=== PATIENT | female | born 1965 | race Caucasian/White ===

== ENCOUNTER 2020-09-06 16:52 | Inpatient (IN) | payer OTHER ==
[~2020-09-06] VITALS: Ht 160 cm; Wt 81.8 kg
--- NOTE | 2020-09-06 17:19 | NUR ---
ASSUMED CARE OF PATIENT. PATIENT MAGDALENA DALTON AFTER BEING FOUND HER CAR UNRESPONSIVE. PT WAS ALSO FOUND TO BE HYPOTENSIVE AND PULSE OX IN THE 70%. EMS STARTED A IO IN THE LEFT LEG AND GAVE FLUIDS WITH NARCAN. PT IS NOW ALERT BUT DRWOSY. PT REPORTS SHE DOES NOT KNOW WHAT HAPPENED, SHE ONLY HAD ONE BEER TODAY. PT WAS FOUND WITH MEDICATIONS IN HER CAR. VS STABLE. LOOP SEWER ON. PT HAS BEEN SEEN BY DR CLIFTON. EKG DONE. CALL LIGHT IN PLACE. WILL CONTINUE TO MONITOR.
[2020-09-06 17:30] LABS: BASOPHILS % (AUTO) 1 % (0-1); EOSINOPHILS % (AUTO) 2 % (1-7); LYMPHOCYTES % (AUTO) 28 % (22-44); MEAN CORPUSCULAR HEMOGLOBIN 30.3 pg (27.0-34.8); MEAN CORPUSCULAR HGB CONC 33.4 g/dL (32.4-35.8); MEAN PLATELET VOLUME 9.3 fL (7.4-10.4); MONOCYTES % (AUTO) 5 % (2-9); NEUTROPHILS % (AUTO) 64 % (42-75); PLATELET COUNT 160 x10^3/uL (130-400); RED BLOOD COUNT 4.55 x10^6/uL (3.82-5.3); RED CELL DISTRIBUTION WIDTH 13.4 % (9.6-15.2)
[2020-09-06 17:42] LABS: ALANINE AMINOTRANSFERASE 25 U/L (12-78); ALBUMIN 3.2 g/dL (3.4-5.0); ANION GAP 10 mmol/L (5-15); CALCIUM 8.3 mg/dL (8.5-10.1); CHLORIDE 111 mmol/L (98-107); CREATININE 1.15 mg/dL (0.55-1.02)
[2020-09-06 17:43] LABS: SALICYLATE LEVEL < 1.7 mg/dL (2.8-20.0)
[2020-09-06 17:47] LABS: ALKALINE PHOSPHATASE 67 U/L (45-117); BILIRUBIN,TOTAL 0.3 mg/dL (0.2-1.0)
[2020-09-06] MEDS ORDERED: ONDANSETRON 2MG/ML, 2ML ONE (17:48)
--- NOTE | 2020-09-06 17:53 | NUR ---
DAUGHTER AT BEDSIDE.
--- NOTE | 2020-09-06 17:53 | NUR ---
DR CLIFTON HAS UDATED PATIENT AND FAMILY
[2020-09-06] MEDS ORDERED: ONDANSETRON 2MG/ML, 2ML IVPush ONE (18:00)
[2020-09-06 19:09] LABS: AMPHETAMINE SCREEN, URINE Positive (Negative); BARBITURATE SCREEN, URINE Negative (Negative); BENZODIAZEPINE SCREEN, URINE Negative (Negative); CANNABINOID SCREEN, URINE Negative (Negative); COCAINE SCREEN, URINE Negative (Negative); METHADONE SCREEN, URINE Negative (Negative); OPIATE SCREEN, URINE Negative (Negative)
--- NOTE | 2020-09-06 19:10 | NUR ---
REPORT GIVEN TO MANUELA CALLE
[2020-09-06 19:19] LABS: MICROSCOPIC NOT IND
--- NOTE | 2020-09-06 19:36 | NUR ---
RECEIVED REPORT FROM MANUELA GUSMAN. PT RESTING ON AISHA. NADN. BEAL.
--- NOTE | 2020-09-06 20:20 | NUR ---
PT CHART REVIEWED AND PLACED FOR RECHECK.
--- NOTE | 2020-09-06 20:36 | NUR ---
PT RESTING IN ROOM. AOX4. PT SATING 98% 2L NC. PLACED ON RA SATING 94%-95%
--- NOTE | 2020-09-06 20:44 | NUR ---
PT NOTED TO DESAT TO 83% RA. PLACED AGAIN ON 2L NC NOW SATING 99%
--- NOTE | 2020-09-06 21:06 | NUR ---
REPORT TGIVEN TO PARVIN JANSEN RN.
[2020-09-06] MEDS ORDERED: ONDANSETRON ODT 4 MG PO PRN (22:30)
[2020-09-06] MEDS ORDERED: BISACODYL 10 MG SUPP PR PRN (22:30)
[2020-09-06] MEDS ORDERED: metFORMIN 500 MG TABLET PO SCH (22:30)
[2020-09-06] MEDS ORDERED: POLYETHYLENE GLYCOL 17 GM PACKET PO PRN (22:30)
--- NOTE | 2020-09-06 22:35 | NUR ---
report to flip michele
[2020-09-06 23:06] VITALS: BP 126/82
[2020-09-07] MEDS: SODIUM CHLORIDE 0.9% 1,000 ML IV SCH ×2 (00:02→17:40)
[2020-09-07 01:14] VITALS: BP 108/71
[2020-09-07 07:48] VITALS: BP 102/66
[2020-09-07] MEDS: SENNA/DOCUSATE TABLET PO SCH (09:30)
[2020-09-07] MEDS: HEPARIN 5,000 UNITS/ML, 1ML SQ SCH ×2 (09:31→17:40)
[2020-09-07] MEDS: ACETAMINOPHEN 325 MG TABLET PO PRN (09:55)
[2020-09-07 10:40] LABS: ANION GAP 6 mmol/L (5-15); CALCIUM 8.4 mg/dL (8.5-10.1); CHLORIDE 108 mmol/L (98-107); CREATININE 0.86 mg/dL (0.55-1.02)
[2020-09-07] MEDS: INSULIN LISPRO 100 UNITS/ML, PEN SQ-INSULIN SCH ×3 (11:00→19:54)
[2020-09-07 12:23] VITALS: BP 90/56
[2020-09-07 19:57] VITALS: BP 99/68
[2020-09-08] MEDS: HEPARIN 5,000 UNITS/ML, 1ML SQ SCH ×2 (01:11→09:00)
[2020-09-08 01:13] VITALS: BP_SYST 112; BP_SYST 116; BP_DIAS 75; BP_DIAS 76; BP_DIAS 77
[2020-09-08] MEDS: SODIUM CHLORIDE 0.9% 1,000 ML IV SCH (01:15)
[2020-09-08 05:40] LABS: ANION GAP 4 mmol/L (5-15); CALCIUM 7.9 mg/dL (8.5-10.1); CHLORIDE 109 mmol/L (98-107); CREATININE 0.75 mg/dL (0.55-1.02)
[2020-09-08] MEDS: INSULIN LISPRO 100 UNITS/ML, PEN SQ-INSULIN SCH ×2 (07:00→11:00)
[2020-09-08 07:09] VITALS: BP 113/77
[2020-09-08] MEDS: SENNA/DOCUSATE TABLET PO SCH ×2 (09:00→10:25)
[2020-09-08] MEDS ORDERED: ACET325T26 PO (10:00)
[2020-09-08] MEDS ORDERED: SENN-99 PO (10:02)
[2020-09-08 13:26] VITALS: BP 120/83
[2020-09-08] MEDS: ACETAMINOPHEN 325 MG TABLET PO PRN (13:32)
[2020-09-08] MEDS ORDERED: SODIUM CHLORIDE 0.9% 1,000 ML IV SCH (22:30)
== END 2020-09-08 16:30 | disposition home or self-care (01) | DRG 639 ==
LOC: MERGE 16:52 → EDBD 16:52 → ED 17:22 → EDIP 22:08 → 4EST 22:49
PROVIDERS: ADMIT Family Medicine; ATTEND Internal Medicine
PROC: 0T9B70Z Drainage of Bladder with Drainage Device, Via Natural or Artificial Opening (ICD-10-PCS; principal; 2020-09-06)
DX: E11.65 Type 2 diabetes mellitus with hyperglycemia (principal); E66.9 Obesity, unspecified; F10.10 Alcohol abuse, uncomplicated; F12.90 Cannabis use, unspecified, uncomplicated; F15.10 Other stimulant abuse, uncomplicated; R55 Syncope and collapse; R09.02 Hypoxemia; Z80.1 Family history of malignant neoplasm of trachea, bronchus and lung; Z87.891 Personal history of nicotine dependence; Z68.31 Body mass index [BMI] 31.0-31.9, adult
CPT/HCPCS: 36415; 36600; 70450; 71045; 80048; 80053; 80299; 80307; 80320; 80329; 81003; 82140; 82803; 82962; 83036; 84703; 85025; 93005; 93306; 93880; 96374; 99291; G0378; J1644; J2405; G0480; J7030

== ENCOUNTER 2020-09-10 11:37 | Observation (INO) | payer MEDICAID, OTHER ==
[~2020-09-10] VITALS: Ht 165.1 cm; Wt 83.0 kg
[~2020-09-10 11:37] MED LIST: ACET325T26 PO; SENN-99 PO
--- NOTE | 2020-09-10 11:51 | NUR ---
DONATIONS ATTENDANT: EKG DONE IN TRIAGE.
[2020-09-10] MEDS ORDERED: ASPIRIN 81 MG TABLET CHEW PO ONE (12:00)
[2020-09-10 12:27] LABS: BASOPHILS % (AUTO) 0 % (0-1); EOSINOPHILS % (AUTO) 1 % (1-7); LYMPHOCYTES % (AUTO) 17 % (22-44); MEAN CORPUSCULAR HEMOGLOBIN 30.2 pg (27.0-34.8); MEAN CORPUSCULAR HGB CONC 33.9 g/dL (32.4-35.8); MEAN PLATELET VOLUME 9.5 fL (7.4-10.4); MONOCYTES % (AUTO) 10 % (2-9); NEUTROPHILS % (AUTO) 72 % (42-75); PLATELET COUNT 186 x10^3/uL (130-400); RED BLOOD COUNT 4.74 x10^6/uL (3.82-5.3); RED CELL DISTRIBUTION WIDTH 13.4 % (9.6-15.2)
[2020-09-10 12:44] LABS: ALBUMIN 3.2 g/dL (3.4-5.0); ANION GAP 5 mmol/L (5-15); CALCIUM 8.7 mg/dL (8.5-10.1); CHLORIDE 110 mmol/L (98-107); CREATININE 0.86 mg/dL (0.55-1.02)
[2020-09-10 12:48] LABS: TROPONIN I < 0.015 ng/mL (0.000-0.045)
--- NOTE | 2020-09-10 13:39 | NUR ---
[employer] DUTY MANAGER: PT TO ROOM FROM LOBBY
[2020-09-10] MEDS ORDERED: ASPIRIN 81 MG TABLET CHEW ONE (13:51)
--- NOTE | 2020-09-10 13:53 | NUR ---
First contact with pt. Pt c/o SOB and intermittent dull L sided cp 09/29. 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 Pt currently speaking in full sentences, resp even and unlabored. Pt placed in gown, positioned for comfort in bed. Continuous heart, oxygen and BP monitors applied, all safety measures observed. [facility] resident at bedside to evaluate pt.
--- NOTE | 2020-09-10 15:09 | NUR ---
BREAK RN: PT VISITING WITH DAUGHTER AT BEDSIDE. VS STABLE. NO ACUTE DISTRESS NOTED. CALL LIGHT IN PLACE. WILL CONTINUE TO MONITOR WHILE PRIMARY RN IS ON BREAK.
[2020-09-10] MEDS ORDERED: OMNIPAQUE 350 MG/ML, 75ML BOTTLE ONE (15:10)
--- NOTE | 2020-09-10 15:38 | NUR ---
BREAK RN: REPORT GIVEN TO MANUELA CASON
--- NOTE | 2020-09-10 16:18 | NUR ---
Pt ambulatory to bathroom and back to bed without difficulty. Pt requesting pain medication for 6/10 CP.
[2020-09-10] MEDS ORDERED: ENALAPRILAT 1.25 MG/ML, 2ML IVPush PRN (17:00)
[2020-09-10] MEDS ORDERED: HYDROmorphone 1 MG/ML, 1ML INJ IV ONE (17:00)
[2020-09-10] MEDS ORDERED: ONDANSETRON 2MG/ML, 2ML IVPush PRN (17:00)
[2020-09-10] MEDS ORDERED: ACETAMINOPHEN 325 MG TABLET PO PRN (17:00)
[2020-09-10] MEDS ORDERED: morphine SULFATE 10 MG/ML, 1ML IVPush PRN (17:00)
[2020-09-10 17:07] LABS: INTERNATIONAL NORMALIZED RATIO 0.97 (0.93-1.1); PROTHROMBIN TIME 10.4 Seconds (9.6-11.5)
[2020-09-10 18:08] VITALS: BP 126/80
[2020-09-10] MEDS ORDERED: LIDODERM 5% PATCH TD PRN (18:30)
[2020-09-10] MEDS: KETOROLAC 30 MG/1 ML IV PRN (18:50)
[2020-09-10 19:17] VITALS: BP 124/83
[2020-09-10] MEDS: APIXABAN 5 MG TABLET PO SCH (20:19)
[2020-09-10] MEDS ORDERED: MELATONIN 5 MG TABLET PO PRN (21:00)
[2020-09-11 02:04] VITALS: BP 116/70
[2020-09-11 04:57] LABS: BASOPHILS % (AUTO) 1 % (0-1); EOSINOPHILS % (AUTO) 2 % (1-7); LYMPHOCYTES % (AUTO) 23 % (22-44); MEAN CORPUSCULAR HEMOGLOBIN 30.5 pg (27.0-34.8); MEAN CORPUSCULAR HGB CONC 33.5 g/dL (32.4-35.8); MEAN PLATELET VOLUME 9.6 fL (7.4-10.4); MONOCYTES % (AUTO) 7 % (2-9); NEUTROPHILS % (AUTO) 68 % (42-75); PLATELET COUNT 180 x10^3/uL (130-400); RED CELL DISTRIBUTION WIDTH 13.3 % (9.6-15.2)
[2020-09-11 05:06] LABS: ALANINE AMINOTRANSFERASE 39 U/L (12-78); ANION GAP 10 mmol/L (5-15); CALCIUM 8.8 mg/dL (8.5-10.1); CHLORIDE 111 mmol/L (98-107); CREATININE 1.04 mg/dL (0.55-1.02)
[2020-09-11 05:08] LABS: ALKALINE PHOSPHATASE 71 U/L (45-117); BILIRUBIN,TOTAL 0.5 mg/dL (0.2-1.0); TOTAL PROTEIN 6.5 g/dL (6.4-8.2)
[2020-09-11 06:32] VITALS: BP 103/69
[2020-09-11] MEDS: KETOROLAC 30 MG/1 ML IV PRN (09:20)
[2020-09-11] MEDS: APIXABAN 5 MG TABLET PO SCH ×2 (09:20→18:51)
[2020-09-11] MEDS ORDERED: ACET325T26 PO ×2 (11:19→12:16)
[2020-09-11] MEDS ORDERED: APIX5TAB PO (11:19)
[2020-09-11] MEDS ORDERED: LIDO700A20 TD (12:14)
[2020-09-11] MEDS ORDERED: HYDR-3241 PO ×2 (12:14)
[2020-09-11 13:30] VITALS: BP 126/82
[2020-09-12] MEDS ORDERED: HYDR-3241 PO (07:04)
== END 2020-09-11 19:22 | disposition home or self-care (01) ==
LOC: ED 13:51 → EDIP 15:35 → INTOOBSV 15:35 → 4EST 17:54
PROVIDERS: ADMIT Family Medicine; ATTEND Internal Medicine
DX: R10.12 Left upper quadrant pain (principal); R07.81 Pleurodynia; I26.99 Other pulmonary embolism without acute cor pulmonale; K76.9 Liver disease, unspecified; I72.8 Aneurysm of other specified arteries; J98.11 Atelectasis; E11.9 Type 2 diabetes mellitus without complications; M79.89 Other specified soft tissue disorders; E66.9 Obesity, unspecified; F15.10 Other stimulant abuse, uncomplicated; F10.10 Alcohol abuse, uncomplicated; Z79.899 Other long term (current) drug therapy; Z79.01 Long term (current) use of anticoagulants
CPT/HCPCS: 36415; 71045; 71275; 80048; 80053; 82040; 83880; 84484; 85025; 85379; 85610; 93005; 93970; 96374; 96376; 99285; G0378; J1885; Q9967

== ENCOUNTER 2020-09-15 07:17 | Emergency (ER) | payer MEDICAID, OTHER ==
[~2020-09-15] VITALS: Ht 160 cm; Wt 84.1 kg
[~2020-09-15 07:17] MED LIST changes: +APIX5TAB PO; +HYDR-3241 PO; +LIDO700A20 TD
--- NOTE | 2020-09-15 07:43 | NUR ---
PT STATES SHE IS COUGHING UP SMALL AMOUNT OF BLOOD X1. DIAGNOSEED W PE AND ON ELIQUIS. DENIES CP OR SOB AT THIS TIME. NOT COUGHING FREQUENTLY, NO LARGE AMOUNTS OF BLOOD.
--- NOTE | 2020-09-15 09:30 | NUR ---
PT AMBULATED TO BATHROOM W STEADY GAIT. NO HEMOPTYSIS
[2020-09-15 10:24] VITALS: BP 117/75
--- NOTE | 2020-09-15 10:24 | NUR ---
Patient given discharge instructions and they have confirmed that they understand the instructions. Patient ambulatory with steady gait.
== END 2020-09-15 10:25 | disposition home or self-care (01) ==
LOC: ED 09:02
DX: R04.2 Hemoptysis (principal); Z86.711 Personal history of pulmonary embolism
CPT/HCPCS: 71045; 99283